=== PATIENT | female | born 1965 | race Caucasian/White ===

== ENCOUNTER 2017-08-30 07:06 | Emergency (ER) | payer SELFPAY ==
[~2017-08-30] VITALS: Ht 165.1 cm; Wt 44.3 kg
[~2017-08-30 07:06] MED LIST: ALEVE220 M2 PO; FLEXERIL10 MG PO; ILOTYCIN1 GM LEFT EYE; KENALOG,ARISTOC15 GM TP; LORTAB 5-325 M1 EACH PO; MAG-TAB SR84 MG PO; MOTRIN800 MG PO; MUSCLE RELAXER; NOHOMEMEDS; ULTRAM50 MG PO; VITAMIN D2000 UNI1 PO
[2017-08-30] MEDS ORDERED: VOLTAREN 1% GE100 GM TP (07:49)
[2017-08-30] MEDS ORDERED: PREDNISONE20 MG PO (07:49)
[2017-08-30] MEDS ORDERED: FLEXERIL10 MG PO (07:49)
[2017-08-30 08:10] VITALS: BP 118/85
== END 2017-08-30 08:10 | disposition home or self-care (01) ==
LOC: EME 07:06
DX: M79.602 Pain in left arm (principal); Y99.0 Civilian activity done for income or pay; X50.3XXA Overexertion from repetitive movements, initial encounter; I77.6 Arteritis, unspecified; F17.200 Nicotine dependence, unspecified, uncomplicated; Z71.6 Tobacco abuse counseling; E21.5 Disorder of parathyroid gland, unspecified; E78.00 Pure hypercholesterolemia, unspecified; M81.0 Age-related osteoporosis without current pathological fracture; M41.9 Scoliosis, unspecified; Z98.890 Other specified postprocedural states
CPT/HCPCS: 99281; 99284

== ENCOUNTER 2018-03-31 16:35 | Emergency (ER) | payer OTHER, BC ==
[~2018-03-31] VITALS: Ht 152.4 cm; Wt 43.9 kg
[~2018-03-31 16:35] MED LIST changes: +PREDNISONE20 MG PO; +VOLTAREN 1% GE100 GM TP
[2018-03-31] MEDS ORDERED: INDOCIN50 MG PO (18:04)
[2018-03-31] MEDS ORDERED: FLEXERIL5 MG PO (18:04)
[2018-03-31 18:33] VITALS: BP 107/72
== END 2018-03-31 18:41 | disposition home or self-care (01) ==
LOC: EME 16:35
DX: S46.912A Strain of unspecified muscle, fascia and tendon at shoulder and upper arm level, left arm, initial encounter (principal); V49.9XXA Car occupant (driver) (passenger) injured in unspecified traffic accident, initial encounter; Y92.488 Other paved roadways as the place of occurrence of the external cause; F17.200 Nicotine dependence, unspecified, uncomplicated
CPT/HCPCS: 99281; 99284